=== PATIENT | male | born 1940 | race Caucasian/White ===

== ENCOUNTER 2023-12-28 10:00 | Outpatient (RCR) | payer MEDICARE, OTHER, SELFPAY | END 2024-01-04 13:25 | disposition home or self-care (01) | LOC: PT 10:00 | PROVIDERS: Visit Provider Orthopaedic Surgery Sports Medicine | DX: M25.561 Pain in right knee (principal) | CPT/HCPCS: 97010; 97110; 97140; 97163; 97164; 97530 ==

== ENCOUNTER 2024-06-05 11:00 | Outpatient (RCR) | payer MEDICARE, OTHER, SELFPAY | END 2024-06-06 08:50 | disposition home or self-care (01) | LOC: PT 11:00 | PROVIDERS: Visit Provider Orthopaedic Surgery Sports Medicine | DX: M25.562 Pain in left knee (principal); Z98.890 Other specified postprocedural states | CPT/HCPCS: 97110; 97112; 97140; 97163; 97530 ==